=== PATIENT | female | born 1995 | race Caucasian/White ===

== ENCOUNTER → 2022-01-30 | Outpatient (CLI) | payer OTHER | LOC: M WHC 14:56 | PROVIDERS: ATTEND Obstetrics & Gynecology | DX: Z34.92 Encounter for supervision of normal pregnancy, unspecified, second trimester (principal) ==

== ENCOUNTER → 2022-02-15 | Outpatient (CLI) | payer OTHER | LOC: M RAD 14:52 | PROVIDERS: ATTEND Obstetrics & Gynecology | DX: Z36.2 Encounter for other antenatal screening follow-up (principal) ==

== ENCOUNTER → 2022-03-25 | Outpatient (CLI) | payer OTHER ==
[2022-03-25 11:05] LABS: HEMATOCRIT 39.7 % (36.0-47.0); MEAN CORPUSCULAR HEMOGLOBIN 31.2 pg (27.0-33.0); MEAN CORPUSCULAR HGB CONC 32.7 g/dl (32.0-36.5); MEAN CORPUSCULAR VOLUME 95.2 fl (80.0-96.0); PLATELET COUNT, AUTOMATED 224 10^3/uL (150-450); RED BLOOD COUNT 4.17 10^6/uL (4.00-5.40)
== END ==
LOC: M PLALAB 08:10
PROVIDERS: ATTEND Obstetrics & Gynecology
DX: Z34.92 Encounter for supervision of normal pregnancy, unspecified, second trimester (principal)

== ENCOUNTER → 2022-04-08 | Outpatient (CLI) | payer OTHER | LOC: M LAB 08:12 | PROVIDERS: ATTEND Obstetrics & Gynecology | DX: R73.09 Other abnormal glucose (principal) ==

== ENCOUNTER → 2022-05-21 | Outpatient (REF) | payer OTHER | LOC: M SFHCWAGY 16:49 | PROVIDERS: ATTEND Obstetrics & Gynecology | DX: Z34.93 Encounter for supervision of normal pregnancy, unspecified, third trimester (principal) ==

== ENCOUNTER 2022-06-11 09:54 | Inpatient (IN) | payer OTHER ==
[2022-06-11] VITALS (42 sets, daily range): BP systolic 95–142; BP diastolic 52–82
[~2022-06-11] VITALS: Ht 170.2 cm; Wt 93.3 kg
[~2022-06-11 09:54] MED LIST: UNRESOLVED CLARIFICATION ENTRY XX SCH
[2022-06-11] MEDS ORDERED: METHYLERGONOVINE MALEATE 0.2MG/ML 1ML VIAL IM PRN (10:45)
[2022-06-11] MEDS ORDERED: CARBOPROST TROMETHAMINE 250 MCG/ML AMP IM PRN (10:45)
[2022-06-11] MEDS ORDERED: OXYTOCIN DRIP 30 UNITS in IV 1 EA IV PRN ×4 (10:45)
[2022-06-11] MEDS ORDERED: TRANEXAMIC ACID INJection 1,000 MG in NS 100 ML IV PRN (10:45)
[2022-06-11 12:02] LABS: HEMATOCRIT 40.1 % (36.0-47.0); HEMOGLOBIN 13.6 g/dl (12.0-15.5); MEAN CORPUSCULAR HEMOGLOBIN 31.1 pg (27.0-33.0); MEAN CORPUSCULAR HGB CONC 33.9 g/dl (32.0-36.5); MEAN CORPUSCULAR VOLUME 91.8 fl (80.0-96.0); PLATELET COUNT, AUTOMATED 218 10^3/uL (150-450); RED BLOOD COUNT 4.37 10^6/uL (4.00-5.40); WHITE BLOOD COUNT 8.3 10^3/uL (4.0-10.0)
[2022-06-11 12:23] LABS: URIC ACID 5.8 MG/DL (3.1-7.8)
[2022-06-11 12:25] LABS: LDH LACTATE DEHYDROGENASE 218 U/L (120-246)
[2022-06-11 12:26] LABS: ALT/SGPT 19 U/L (7.0-40); AST/SGOT 21 U/L (<34); BILIRUBIN,TOTAL 0.3 MG/DL (0.3-1.2); CREATININE FOR GFR 0.65 MG/DL (0.55-1.30); GLOMERULAR FILTRATION RATE > 60.0 (>60)
[2022-06-11] MEDS ORDERED: PNVTAB4 PO (12:27)
[2022-06-11] MEDS: LACTATED RINGER'S 1000 ML IV PRN ×2 (12:37→17:53)
[2022-06-11] MEDS ORDERED: OXYTOCIN DRIP 30 UNITS in IV 1 EA IV SCH (13:00)
[2022-06-11] MEDS ORDERED: FENTANYL/ROPIVACAINE/NACL BAG 100 ML EPIDURAL SCH (18:30)
[2022-06-11] MEDS ORDERED: ONDANSETRON 4MG 2ML VIAL IV PRN (18:30)
[2022-06-11] MEDS ORDERED: NALOXONE INJ 0.4MG/1ML VIAL IV PRN (18:30)
[2022-06-11] MEDS ORDERED: LR 500 ML IV PRN (18:30)
[2022-06-11] MEDS ORDERED: diphenhydrAMINE 50MG/ML VIAL IV PRN (18:30)
[2022-06-11] MEDS ORDERED: EPIDURAL/PCA KEYS XX PRN (18:30)
[2022-06-11] MEDS ORDERED: ePHEDrine SULFATE 25 MG/5 ML(5MG/ML) SYRINGE IVP PRN (18:30)
[2022-06-11] MEDS ORDERED: METHYLERGONOVINE MALEATE 0.2 MG TAB PO PRN (22:45)
[2022-06-11] MEDS ORDERED: DOCUSATE SODIUM 100MG CAPSULE PO PRN (22:45)
[2022-06-11] MEDS ORDERED: DIBUCAINE 1% OINTMENT 30GM TOP PRN (22:45)
[2022-06-11] MEDS ORDERED: RHOGAM 300MCG (1500IU) INJ IM SCH (22:45)
[2022-06-11] MEDS ORDERED: ACETAMINOPHEN 500 MG TAB PO PRN (22:45)
[2022-06-11] MEDS ORDERED: IBUPROFEN 600MG TAB PO PRN (22:45)
[2022-06-12 01:11] VITALS: BP 113/62
[2022-06-12 06:00] VITALS: BP 116/72
[2022-06-12 06:44] LABS: HEMATOCRIT 37.8 % (36.0-47.0); HEMOGLOBIN 12.8 g/dl (12.0-15.5); MEAN CORPUSCULAR HEMOGLOBIN 31.4 pg (27.0-33.0); MEAN CORPUSCULAR HGB CONC 33.9 g/dl (32.0-36.5); MEAN CORPUSCULAR VOLUME 92.9 fl (80.0-96.0); PLATELET COUNT, AUTOMATED 185 10^3/uL (150-450); RED BLOOD COUNT 4.07 10^6/uL (4.00-5.40); WHITE BLOOD COUNT 11.1 10^3/uL (4.0-10.0)
[2022-06-12] MEDS: PRENATAL VITAMINS CHEWABLE TABLET PO SCH (08:12)
[2022-06-12 18:12] VITALS: BP 120/77
[2022-06-13 06:00] VITALS: BP 110/68
[2022-06-13] MEDS: PRENATAL VITAMINS CHEWABLE TABLET PO SCH (08:47)
[2022-06-13] MEDS ORDERED: MEASLES,MUMPS,RUBELLA VACCINE INJ (MMR-II) SC.IMMUN ONE (09:00)
== END 2022-06-13 14:45 | disposition home or self-care (01) | DRG 807 ==
LOC: M LDI 09:54 → M OBS 06-12 01:10
PROVIDERS: ADMIT Obstetrics & Gynecology; ATTEND Obstetrics & Gynecology
PROC: 10E0XZZ Delivery of Products of Conception, External Approach (ICD-10-PCS; principal; 2022-06-11)
PROC: 3E033VJ Introduction of Other Hormone into Peripheral Vein, Percutaneous Approach (ICD-10-PCS; 2022-06-11)
PROC: 10907ZC Drainage of Amniotic Fluid, Therapeutic from Products of Conception, Via Natural or Artificial Opening (ICD-10-PCS; 2022-06-11)
DX: O69.81X0 Labor and delivery complicated by cord around neck, without compression, not applicable or unspecified (principal); Z37.0 Single live birth; Z3A.39 39 weeks gestation of pregnancy; O76 Abnormality in fetal heart rate and rhythm complicating labor and delivery; O66.0 Obstructed labor due to shoulder dystocia

== ENCOUNTER → 2022-09-25 | Outpatient (REF) | payer OTHER ==
[~2022-09-25] MED LIST changes: +PNVTAB4 PO; -UNRESOLVED CLARIFICATION ENTRY XX SCH
== END ==
LOC: M PLALAB 15:20
PROVIDERS: ATTEND Advanced Practice Midwife
DX: Z12.4 Encounter for screening for malignant neoplasm of cervix (principal)
CPT/HCPCS: G0123; G0463